=== PATIENT | male | born 1985 | race African-American/Black ===

== ENCOUNTER 2018-05-04 01:59 | Emergency (ER) | payer OTHER ==
[~2018-05-04] VITALS: Ht 182.9 cm; Wt 82.1 kg
[2018-05-04 02:10] VITALS: BP 148/82
--- NOTE | 2018-05-04 02:10 | Emergency Room Report ---
History of Present Illness General Chief Complaint: Dyspnea/Respdistress Source: Patient Present Illness HPI Patient presents with allergic reaction. He has shortness of breath with wheezing. Also feels that his throat is closing. Denies any nausea or dizziness. He's been treated in the past with Qvar. He doesn't remember being treated with steroids in the past. It's been several years since he's had allergic reaction like this. This is not the most severe reaction he's ever had. He thinks he ate something that caused this to be triggered. This just started very soon before coming in. He has some hives on his upper arms. Allergic to peanuts and shellfish. No fevers, chills, vomiting, diarrhea, abdominal pain, joint pain, headache. 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 Nursing Documentation: PMH: Agreed; PSxH: Agreed Nursing Documentation-PMH Hx Asthma: Yes Review of Systems All Other Systems: negative except mentioned in HPI Physical Exam Vital Signs Date Time Temp Pulse Resp B/P (MAP) Pulse Ox O2 Delivery O2 Flow Rate FiO2 05/04/18 02:05 97.5 109 24 148/82 94 Room Air Sp02 EP Interpretation: reviewed, normal General Appearance: well appearing, no apparent distress, GCS 15 Head: normocephalic, atraumatic Eyes: bilateral eye PERRL, bilateral eye Scleral Injection ENT: no angioedema, moist mucus membranes Neck: supple Respiratory: no respiratory distress, wheezing, expiration Cardiovascular #1: regular rate, rhythm Cardiovascular #2: 2+ radial (R) Gastrointestinal: normal inspection, normal bowel sounds, non tender, no mass, non-distended Musculoskeletal: back normal, gait/station normal, normal range of motion Neurologic: alert, oriented x3, grossly normal Psychiatric: mood/affect normal Skin: warm/dry, other - Hives and afhcy-upk-dpgsl reaction upper arms Medical Decision Making Diagnostic Impression: Primary Impression: Allergic reaction Qualified Codes: T78.40XA - Allergy, unspecified, initial encounter ER Course Patient presents with wheezing and hives after ingestion of food. Differential includes anaphylaxis, allergic reaction, bronchospasm amongst others. The patient will be treated with intramuscular epinephrine, IV Solu-Medrol and Benadryl. In addition he will receive breathing treatments. He is placed on the site monitor. EKG without injury. Right axis deviation. Improved with treatment. Still with some wheezing. Itching and throat symptoms are resolved. Repeat treatment given. Patient much improved and clear. Discussed the prescription of EpiPen. In addition I suggested he follow-up with his doctor soon. Patient stable for outpatient observation and treatment. EKG Diagnostic Results Rate: tachycardiac ST Segments: no acute changes - R axis Rhythm Strip Diag. Results EP Interpretation: yes Rhythm: no PVC's, no ectopy, other - ST Last Vital Signs Date Time Temp Pulse Resp B/P (MAP) Pulse Ox O2 Delivery O2 Flow Rate FiO2 05/04/18 03:50 97.5 96 18 126/64 98 Room Air 21 Status: improved Disposition: HOME, SELF-CARE Condition: Improved Scripts Diphenhydramine Hcl* (BENADRYL*) 25 Mg Capsule 25 MG ORAL Q6H PRN for Itching, #20 CAP Prov: Navi Hendrix MD 05/04/18 Epinephrine (Epipen 2-Ramon) 0.3 Mg/0.3 Ml Auto.injct 0.3 MG IM NEEDED, #1 EA 2 Refills Prov: Navi Hendrix MD 05/04/18 Prednisone* (PREDNISONE*) 20 Mg Tablet 40 MG ORAL DAILY, #6 TAB Prov: Navi Hendrix MD 05/04/18 Albuterol Sulfate* (ALBUTEROL SULFATE MDI*) 8.5 Gm Hfa.aer.ad 2 PUFF INH Q6H, #1 EA 0 Refills Prov: Navi Hendrix MD 05/04/18 Navi Hendrix MD May 04, 2018 02:10
--- NOTE | 2018-05-04 02:10 | NUR ---
ED Nurse Note: patient presented to ED with possible allergic reaction. Reports eating at a restaurant; generalized pruritus, periorbital edema and SOB. Accompanied by significant other. AO4. NAD.
[2018-05-04] MEDS ORDERED: Albuterol ud Inhalation HHN ONE ×2 (02:15→03:30)
[2018-05-04] MEDS ORDERED: Solu-MEDROL 125mg Inj IVP ONE (02:15)
[2018-05-04] MEDS ORDERED: EPINEPHrine 1mg/1ml Amp IM ONE (02:15)
[2018-05-04] MEDS ORDERED: Ipratropium 0.02% Inh Soln 2.5ml UD HHN ONE (02:15)
[2018-05-04] MEDS ORDERED: DiphenhydrAMINE 50mg/ml Inj IVP ONE (02:15)
[2018-05-04] MEDS ORDERED: BENADRYL25 MG ORAL (03:27)
[2018-05-04] MEDS ORDERED: PREDNISONE20 MG ORAL (03:27)
[2018-05-04] MEDS ORDERED: EPIPEN 2-P0.3 MG/0.3 IM (03:27)
[2018-05-04] MEDS ORDERED: ALBUTEROL SULF8.5 GM INH (03:27)
[2018-05-04 03:50] VITALS: BP 126/64
--- NOTE | 2018-05-04 03:50 | NUR ---
ED Nurse Note: Patient cleared cleared for discharge per ERMD. AO4. NAD. VSS. Accompanied by significant other. Patient given prescriptions and discharge instructions; verbalized understanding.IV and ID removed. Patient ambulated steady out of ED with all belongings.
== END 2018-05-04 03:50 | disposition home or self-care (01) ==
LOC: EMR 03:01
DX: T78.40XA Allergy, unspecified, initial encounter (principal); X58.XXXA Exposure to other specified factors, initial encounter; R06.02 Shortness of breath; R06.2 Wheezing; J45.909 Unspecified asthma, uncomplicated; Z88.0 Allergy status to penicillin
CPT/HCPCS: 93005; 94640; 94664; 96361; 96372; 96374; 96375; 99284; J0171; J1200; J2930